=== PATIENT | male | born 1985 | race Caucasian/White ===

== ENCOUNTER 2023-10-28 14:09 | Emergency (ER) | payer MEDICAID, OTHER ==
[~2023-10-28] VITALS: Ht 182.9 cm; Wt 146.1 kg
[~2023-10-28 14:09] MED LIST: ALB0.5UD NEB; DIAZ2TAB PO; NAPR-1154 PO; advair
[2023-10-28 14:23] VITALS: TEMP 98.2
[2023-10-28 15:24] LABS: BASOPHILS # (AUTO) 0.1 X10'3 (0-0.2); BASOPHILS % (AUTO) 0.8 % (0-1); EOSINOPHILS # (AUTO) 1.3 X10'3 (0-0.9); EOSINOPHILS % (AUTO) 9.7 % (0-6); HEMATOCRIT 44.2 % (42.0-52.0); LYMPHOCYTES # (AUTO) 2.6 X10'3 (1.1-4.8); LYMPHOCYTES % (AUTO) 20.1 % (21-51); MEAN CORPUSCULAR HEMOGLOBIN 30.3 PG (27.0-31.0); MEAN CORPUSCULAR VOLUME 89.1 FL (78-98); MEAN PLATELET VOLUME 8.5 FL (7.4-10.4); MONOCYTES % (AUTO) 7.8 % (2-12); NEUTROPHILS % (AUTO) 61.6 % (42-75); PLATELET COUNT 244 X10'3 (140-440); RED BLOOD COUNT 4.96 X10'6 (4.70-6.10); RED CELL DISTRIBUTION WIDTH 13.3 % (11.5-14.5); WHITE BLOOD COUNT 12.9 X10'3 (4.5-11.0)
[2023-10-28 15:31] LABS: ALBUMIN 3.7 G/DL (3.4-5.0); ANION GAP 7 (8-16); BLOOD UREA NITROGEN 18 MG/DL (7-18); BUN/CREATININE RATIO 15.5 (10.0-20.0); CALCIUM 8.4 MG/DL (8.5-10.1); CHLORIDE 107 MMOL/L (99-107); CREATININE 1.16 MG/DL (0.60-1.10); GLUCOSE 153 MG/DL (70-104); POTASSIUM 3.6 MMOL/L (3.5-5.1); SODIUM 141 MMOL/L (135-145); eCRCL 94 ML/MIN; eGFR 70 ML/MIN
[2023-10-28] MEDS ORDERED: AMOX-580 PO (15:44)
[2023-10-28] MEDS: amox tr/potassium clavulanate 875/125mg TAB PO ONE (15:57)
[2023-10-28 17:08] VITALS: BP 130/80; PULSE 99; RESP 18; O2SAT 97
== END 2023-10-28 17:19 | disposition home or self-care (01) ==
LOC: ER 14:10
DX: J20.9 Acute bronchitis, unspecified (principal); K04.7 Periapical abscess without sinus
CPT/HCPCS: 36415; 71045; 80048; 85025; 99284